=== PATIENT | female | born 1945 | race Asian ===

== ENCOUNTER 2017-04-30 11:16 | Outpatient (CLI) | payer OTHER | END 2017-04-30 19:15 | disposition home or self-care (01) | LOC: CT 11:16 | DX: R10.0 Acute abdomen (principal) | CPT/HCPCS: 36415; 82565; 84520; Q9963 ==

== ENCOUNTER 2018-11-05 13:58 | Inpatient (IN) | payer OTHER | END 2018-11-13 10:55 | disposition still patient (30) | LOC: PAVB 13:58 | PROVIDERS: ADMIT Internal Medicine ==

== ENCOUNTER 2018-11-13 11:21 | Inpatient (IN) | payer OTHER | END 2018-12-11 10:20 | disposition still patient (30) | LOC: PAVB 11:21 | PROVIDERS: ADMIT Internal Medicine ==

== ENCOUNTER 2018-12-09 06:04 | Outpatient (CLI) | payer OTHER | END 2018-12-09 19:38 | disposition home or self-care (01) | LOC: LAB 06:04 | DX: Z51.81 Encounter for therapeutic drug level monitoring (principal) | CPT/HCPCS: 36415; 82565 ==

== ENCOUNTER 2018-12-11 11:18 | Inpatient (IN) | payer OTHER | END 2019-01-11 10:41 | disposition still patient (30) | LOC: PAVB 11:18 | PROVIDERS: ADMIT Internal Medicine ==

== ENCOUNTER 2019-01-11 11:29 | Inpatient (IN) | payer OTHER | END 2019-02-10 11:18 | disposition still patient (30) | LOC: PAVB 11:29 | PROVIDERS: ADMIT Internal Medicine ==

== ENCOUNTER 2019-01-13 06:55 | Outpatient (CLI) | payer OTHER | END 2019-01-13 19:40 | disposition home or self-care (01) | LOC: LAB 06:55 | DX: E11.9 Type 2 diabetes mellitus without complications (principal) | CPT/HCPCS: 36415; 82728; 83036; 83540; 84443 ==

== ENCOUNTER 2019-01-13 13:30 | Outpatient (CLI) | payer OTHER | END 2019-01-13 20:07 | disposition home or self-care (01) | LOC: RAD 13:30 | DX: M17.0 Bilateral primary osteoarthritis of knee (principal) ==

== ENCOUNTER 2019-01-14 08:55 | Outpatient (CLI) | payer OTHER | END 2019-01-14 19:15 | disposition home or self-care (01) | LOC: MRI 08:55 | DX: M54.5 Low back pain (principal); Z78.0 Asymptomatic menopausal state; M25.562 Pain in left knee; M25.561 Pain in right knee ==

== ENCOUNTER 2019-02-10 12:36 | Inpatient (IN) | payer OTHER | END 2019-03-13 08:39 | disposition still patient (30) | LOC: PAVB 12:36 | PROVIDERS: ADMIT Internal Medicine | DX: Z51.89 Encounter for other specified aftercare (principal) ==

== ENCOUNTER 2019-03-13 09:36 | Inpatient (IN) | payer OTHER | END 2019-04-12 09:38 | disposition still patient (30) | LOC: PAVB 09:36 | PROVIDERS: ADMIT Internal Medicine ==

== ENCOUNTER 2019-04-12 11:32 | Inpatient (IN) | payer OTHER | END 2019-05-13 10:36 | disposition still patient (30) | LOC: PAVB 11:32 | PROVIDERS: ADMIT Internal Medicine ==

== ENCOUNTER 2019-04-14 05:28 | Outpatient (CLI) | payer OTHER ==
[2019-04-14 06:27] LABS: PLATELET COUNT 292 K/uL (152-353)
== END 2019-04-14 19:14 | disposition home or self-care (01) ==
LOC: LAB 05:28
PROVIDERS: Internal Medicine
DX: D51.8 Other vitamin B12 deficiency anemias (principal); E11.21 Type 2 diabetes mellitus with diabetic nephropathy; I10 Essential (primary) hypertension; E03.8 Other specified hypothyroidism
CPT/HCPCS: 80053; 82607; 82728; 83036; 83540; 84443; 85027

== ENCOUNTER 2019-04-28 11:05 | Outpatient (CLI) | payer OTHER | END 2019-04-28 23:47 | disposition home or self-care (01) | LOC: RAD 11:05 | DX: M54.5 Low back pain (principal) ==

== ENCOUNTER 2019-05-13 11:25 | Inpatient (IN) | payer OTHER | END 2019-06-13 16:27 | disposition still patient (30) | LOC: PAVB 11:25 | PROVIDERS: ADMIT Internal Medicine ==

== ENCOUNTER 2019-06-13 17:13 | Inpatient (IN) | payer OTHER | END 2019-07-13 09:22 | disposition still patient (30) | LOC: PAVB 17:13 | PROVIDERS: ADMIT Internal Medicine ==

== ENCOUNTER 2019-07-13 11:10 | Inpatient (IN) | payer OTHER | END 2019-08-13 11:11 | disposition still patient (30) | LOC: PAVB 11:10 | PROVIDERS: ADMIT Internal Medicine ==

== ENCOUNTER 2019-07-16 08:19 | Outpatient (CLI) | payer OTHER | END 2019-07-16 22:02 | disposition home or self-care (01) | LOC: LAB 08:19 | DX: E03.8 Other specified hypothyroidism (principal); E11.9 Type 2 diabetes mellitus without complications | CPT/HCPCS: 36415; 83036; 84443 ==

== ENCOUNTER 2019-07-22 14:30 | Outpatient (CLI) | payer OTHER | END 2019-07-22 20:21 | disposition home or self-care (01) | LOC: RESP 14:30 | DX: R60.0 Localized edema (principal) | CPT/HCPCS: 93306 ==

== ENCOUNTER 2019-08-13 11:42 | Inpatient (IN) | payer OTHER | END 2019-09-12 08:00 | disposition still patient (30) | LOC: PAVB 11:42 | PROVIDERS: ADMIT Internal Medicine ==

== ENCOUNTER 2019-09-12 11:11 | Inpatient (IN) | payer OTHER | END 2019-10-13 08:35 | disposition still patient (30) | LOC: PAVB 11:11 | PROVIDERS: ADMIT Internal Medicine ==

== ENCOUNTER 2019-10-13 08:58 | Inpatient (IN) | payer OTHER | END 2019-11-13 09:57 | disposition still patient (30) | LOC: PAVB 08:58 | PROVIDERS: ADMIT Internal Medicine ==

== ENCOUNTER 2019-10-14 06:02 | Outpatient (CLI) | payer OTHER ==
[2019-10-14 06:37] LABS: PLATELET COUNT 234 K/uL (152-353)
[2019-10-14 07:03] LABS: POTASSIUM 4.6 mmol/L (3.6-5.2)
== END 2019-10-14 19:30 | disposition home or self-care (01) ==
LOC: LAB 06:02
PROVIDERS: Internal Medicine
DX: E11.9 Type 2 diabetes mellitus without complications (principal); E03.8 Other specified hypothyroidism; I10 Essential (primary) hypertension; M17.0 Bilateral primary osteoarthritis of knee; M19.90 Unspecified osteoarthritis, unspecified site
CPT/HCPCS: 80053; 82728; 83036; 83540; 84443; 85027

== ENCOUNTER 2019-11-13 10:42 | Inpatient (IN) | payer OTHER | END 2019-12-12 13:16 | disposition still patient (30) | LOC: PAVB 10:42 | PROVIDERS: ADMIT Internal Medicine ==

== ENCOUNTER 2019-12-12 14:06 | Inpatient (IN) | payer OTHER | END 2020-01-12 08:59 | disposition still patient (30) | LOC: PAVB 14:06 → PAVA 01-05 14:27 | PROVIDERS: ADMIT Internal Medicine ==

== ENCOUNTER 2020-01-12 09:25 | Inpatient (IN) | payer OTHER | END 2020-02-11 08:04 | disposition still patient (30) | LOC: PAVA 09:25 | PROVIDERS: ADMIT Internal Medicine ==

== ENCOUNTER 2020-01-14 06:42 | Outpatient (CLI) | payer OTHER ==
[2020-01-14 08:42] LABS: POTASSIUM 5.3 mmol/L (3.6-5.2)
== END 2020-01-14 23:30 | disposition home or self-care (01) ==
LOC: LAB 06:42
PROVIDERS: Internal Medicine
DX: E11.21 Type 2 diabetes mellitus with diabetic nephropathy (principal); I10 Essential (primary) hypertension
CPT/HCPCS: 80048; 83036

== ENCOUNTER 2020-01-17 05:17 | Outpatient (CLI) | payer OTHER ==
[2020-01-17 07:47] LABS: POTASSIUM 4.6 mmol/L (3.6-5.2)
== END 2020-01-17 19:12 | disposition home or self-care (01) ==
LOC: LAB 05:17
PROVIDERS: Internal Medicine
DX: R79.89 Other specified abnormal findings of blood chemistry (principal)
CPT/HCPCS: 80048

== ENCOUNTER 2020-01-24 05:46 | Outpatient (CLI) | payer OTHER ==
[2020-01-24 11:14] LABS: POTASSIUM 4.5 mmol/L (3.6-5.2)
== END 2020-01-24 22:36 | disposition home or self-care (01) ==
LOC: LAB 05:46
PROVIDERS: Internal Medicine
DX: R79.89 Other specified abnormal findings of blood chemistry (principal)
CPT/HCPCS: 36415; 80048

== ENCOUNTER 2020-02-11 08:55 | Inpatient (IN) | payer OTHER | END 2020-03-13 08:12 | disposition still patient (30) | LOC: PAVA 08:55 | PROVIDERS: ADMIT Internal Medicine | CPT/HCPCS: 87635; U0002 ==

== ENCOUNTER 2020-03-13 08:46 | Inpatient (IN) | payer OTHER | END 2020-04-12 08:27 | disposition still patient (30) | LOC: PAVA 08:46 | PROVIDERS: ADMIT Internal Medicine | CPT/HCPCS: 87635; U0002 ==

== ENCOUNTER 2020-04-12 07:26 | Outpatient (CLI) | payer OTHER ==
[2020-04-12 08:18] LABS: PLATELET COUNT 248 K/uL (152-353)
[2020-04-12 08:43] LABS: POTASSIUM 3.6 mmol/L (3.6-5.2)
== END 2020-04-12 22:02 | disposition home or self-care (01) ==
LOC: LAB 07:26
PROVIDERS: Internal Medicine
DX: E11.9 Type 2 diabetes mellitus without complications (principal); E03.8 Other specified hypothyroidism; I10 Essential (primary) hypertension; D64.89 Other specified anemias; I48.91 Unspecified atrial fibrillation; E66.01 Morbid (severe) obesity due to excess calories
CPT/HCPCS: 80053; 82272; 82728; 83036; 83540; 83630; 84443; 85027; 87015; 87045; 87324; 87328; 87329; 87449; 87899

== ENCOUNTER 2020-04-12 09:53 | Inpatient (IN) | payer OTHER | END 2020-05-13 08:23 | disposition still patient (30) | LOC: PAVA 09:53 | PROVIDERS: ADMIT Internal Medicine | CPT/HCPCS: 87635; U0002 ==

== ENCOUNTER 2020-05-13 09:02 | Inpatient (IN) | payer OTHER | END 2020-06-13 10:51 | disposition still patient (30) | LOC: PAVA 09:02 | PROVIDERS: ADMIT Internal Medicine | CPT/HCPCS: 87635; U0002 ==

== ENCOUNTER 2020-06-13 11:32 | Inpatient (IN) | payer OTHER | END 2020-07-13 09:34 | disposition still patient (30) | LOC: PAVA 11:32 | PROVIDERS: ADMIT Internal Medicine | CPT/HCPCS: 82728; 83036 ==

== ENCOUNTER 2020-07-04 15:11 | Outpatient (CLI) | payer OTHER | END 2020-07-04 19:59 | disposition home or self-care (01) | LOC: LAB 15:11 | DX: N39.498 Other specified urinary incontinence (principal); M54.5 Low back pain | CPT/HCPCS: 81000 ==

== ENCOUNTER 2020-07-06 14:34 | Outpatient (CLI) | payer OTHER | END 2020-07-06 23:45 | disposition home or self-care (01) | LOC: US 14:34 | DX: N39.498 Other specified urinary incontinence (principal) ==

== ENCOUNTER 2020-07-13 10:54 | Inpatient (IN) | payer OTHER | END 2020-08-13 08:00 | disposition still patient (30) | LOC: PAVA 10:54 | PROVIDERS: ADMIT Internal Medicine ==

== ENCOUNTER 2020-07-13 10:55 | Outpatient (CLI) | payer OTHER | END 2020-07-13 20:05 | disposition home or self-care (01) | LOC: LAB 10:55 | DX: E11.9 Type 2 diabetes mellitus without complications (principal); D64.89 Other specified anemias | CPT/HCPCS: 82728; 83036; 83540 ==

== ENCOUNTER 2020-08-09 00:19 | Emergency (ER) | payer OTHER ==
[~2020-08-09] VITALS: Ht 167.6 cm; Wt 127.0 kg
[2020-08-09 03:10] LABS: PLATELET COUNT 263 K/uL (152-353)
[2020-08-09 04:05] VITALS: BP 125/61; TEMP 97.7
== END 2020-08-09 04:05 ==
LOC: ED 00:19
PROVIDERS: Family Medicine
DX: M51.36 Other intervertebral disc degeneration, lumbar region (principal); M54.5 Low back pain; G89.29 Other chronic pain; X50.1XXA Overexertion from prolonged static or awkward postures, initial encounter; Y92.128 Other place in nursing home as the place of occurrence of the external cause
CPT/HCPCS: 36415; 80053; 81000; 85027; 96372; 99283; J2175

== ENCOUNTER 2020-08-13 09:00 | Inpatient (IN) | payer OTHER | END 2020-09-12 08:39 | disposition still patient (30) | LOC: PAVA 09:00 | PROVIDERS: ADMIT Internal Medicine; ATTEND Internal Medicine ==

== ENCOUNTER 2020-09-12 09:35 | Inpatient (IN) | payer OTHER | END 2020-10-13 08:29 | disposition still patient (30) | LOC: PAVA 09:35 | PROVIDERS: ADMIT Internal Medicine; ATTEND Internal Medicine ==

== ENCOUNTER 2020-10-13 09:00 | Inpatient (IN) | payer OTHER | END 2020-11-13 13:11 | disposition still patient (30) | LOC: PAVA 09:00 | PROVIDERS: ADMIT Internal Medicine; ATTEND Internal Medicine ==

== ENCOUNTER 2020-10-16 08:31 | Outpatient (CLI) | payer OTHER ==
[2020-10-16 09:33] LABS: PLATELET COUNT 251 K/uL (152-353)
[2020-10-16 10:11] LABS: POTASSIUM 3.8 mmol/L (3.6-5.2)
== END 2020-10-16 21:06 | disposition home or self-care (01) ==
LOC: LAB 08:31
PROVIDERS: ATTEND Internal Medicine
DX: Z51.81 Encounter for therapeutic drug level monitoring (principal); I10 Essential (primary) hypertension; D64.89 Other specified anemias; E03.8 Other specified hypothyroidism; E11.21 Type 2 diabetes mellitus with diabetic nephropathy; I48.91 Unspecified atrial fibrillation; E66.01 Morbid (severe) obesity due to excess calories
CPT/HCPCS: 80053; 82728; 83036; 84443; 85027

== ENCOUNTER 2020-11-13 14:26 | Inpatient (IN) | payer OTHER | END 2020-12-11 08:41 | disposition still patient (30) | LOC: PAVA 14:26 | PROVIDERS: ADMIT Internal Medicine; ATTEND Internal Medicine ==

== ENCOUNTER 2020-12-11 09:18 | Inpatient (IN) | payer OTHER | END 2021-01-11 08:34 | disposition still patient (30) | LOC: PAVA 09:18 | PROVIDERS: ADMIT Internal Medicine; ATTEND Internal Medicine ==

== ENCOUNTER 2021-01-11 09:44 | Inpatient (IN) | payer OTHER | END 2021-02-10 11:57 | disposition still patient (30) | LOC: PAVA 09:44 | PROVIDERS: ADMIT Internal Medicine; ATTEND Internal Medicine ==

== ENCOUNTER 2021-01-11 12:51 | Outpatient (CLI) | payer OTHER | END 2021-01-11 21:34 | disposition home or self-care (01) | LOC: LAB 12:51 | PROVIDERS: ATTEND Internal Medicine | DX: E11.9 Type 2 diabetes mellitus without complications (principal) | CPT/HCPCS: 83036 ==

== ENCOUNTER 2021-01-17 10:13 | Outpatient (CLI) | payer OTHER | END 2021-01-17 20:10 | disposition home or self-care (01) | LOC: RAD 10:13 | PROVIDERS: ATTEND Internal Medicine | DX: Z13.820 Encounter for screening for osteoporosis (principal) ==

== ENCOUNTER 2021-02-10 12:13 | Inpatient (IN) | payer OTHER | END 2021-03-13 13:25 | disposition still patient (30) | LOC: PAVA 12:13 | PROVIDERS: ADMIT Internal Medicine; ATTEND Internal Medicine ==

== ENCOUNTER 2021-03-13 14:29 | Inpatient (IN) | payer OTHER | END 2021-04-12 08:00 | disposition still patient (30) | LOC: PAVA 14:29 | PROVIDERS: ADMIT Internal Medicine; ATTEND Internal Medicine ==

== ENCOUNTER 2021-04-12 09:00 | Inpatient (IN) | payer OTHER | END 2021-05-13 08:00 | disposition still patient (30) | LOC: PAVA 09:00 | PROVIDERS: ADMIT Internal Medicine; ATTEND Internal Medicine ==

== ENCOUNTER 2021-04-16 07:32 | Outpatient (CLI) | payer OTHER ==
[2021-04-16 10:43] LABS: PLATELET COUNT 255 K/uL (152-353)
[2021-04-16 11:26] LABS: POTASSIUM 4.5 mmol/L (3.6-5.2)
== END 2021-04-16 23:00 | disposition home or self-care (01) ==
LOC: LAB 07:32
PROVIDERS: ATTEND Internal Medicine
DX: I48.91 Unspecified atrial fibrillation (principal); E66.01 Morbid (severe) obesity due to excess calories; E11.21 Type 2 diabetes mellitus with diabetic nephropathy; E03.8 Other specified hypothyroidism
CPT/HCPCS: 80053; 82728; 83036; 83540; 84443; 85027

== ENCOUNTER 2021-05-13 09:00 | Inpatient (IN) | payer OTHER | END 2021-06-13 09:09 | disposition still patient (30) | LOC: PAVA 09:00 | PROVIDERS: ADMIT Internal Medicine; ATTEND Internal Medicine ==

== ENCOUNTER 2021-06-13 09:50 | Inpatient (IN) | payer OTHER | END 2021-07-13 08:11 | disposition still patient (30) | LOC: PAVA 09:50 | PROVIDERS: ADMIT Internal Medicine; ATTEND Internal Medicine ==

== ENCOUNTER 2021-07-13 10:37 | Outpatient (CLI) | payer OTHER | END 2021-07-13 19:05 | disposition home or self-care (01) | LOC: LAB 10:37 | PROVIDERS: ATTEND Internal Medicine | DX: E11.9 Type 2 diabetes mellitus without complications (principal) | CPT/HCPCS: 83036 ==

== ENCOUNTER 2021-09-12 09:12 | Inpatient (IN) | payer OTHER | END 2021-10-13 07:57 | disposition still patient (30) | LOC: PAVA 09:12 | PROVIDERS: ADMIT Internal Medicine; ATTEND Internal Medicine ==

== ENCOUNTER 2021-10-13 08:18 | Inpatient (IN) | payer OTHER | END 2021-11-13 08:52 | disposition still patient (30) | LOC: PAVA 08:18 | PROVIDERS: ADMIT Internal Medicine; ATTEND Internal Medicine ==

== ENCOUNTER 2021-10-15 07:48 | Outpatient (CLI) | payer OTHER ==
[2021-10-15 08:56] LABS: PLATELET COUNT 216 K/uL (152-353)
[2021-10-15 09:37] LABS: POTASSIUM 4.3 mmol/L (3.6-5.2)
== END 2021-10-15 18:47 | disposition home or self-care (01) ==
LOC: LAB 07:48
PROVIDERS: ATTEND Internal Medicine
DX: E11.9 Type 2 diabetes mellitus without complications (principal); D64.89 Other specified anemias; I10 Essential (primary) hypertension
CPT/HCPCS: 80053; 82728; 83036; 83540; 84443; 85027

== ENCOUNTER 2021-11-13 10:53 | Inpatient (IN) | payer OTHER | END 2021-12-11 08:55 | disposition still patient (30) | LOC: PAVA 10:53 | PROVIDERS: ADMIT Internal Medicine; ATTEND Internal Medicine ==

== ENCOUNTER 2021-11-27 13:58 | Outpatient (CLI) | payer OTHER | END 2021-11-27 19:02 | disposition home or self-care (01) | LOC: RAD 13:58 | PROVIDERS: ATTEND Internal Medicine | DX: M25.562 Pain in left knee (principal) ==

== ENCOUNTER 2021-12-11 11:19 | Inpatient (IN) | payer OTHER | END 2022-01-11 08:10 | disposition still patient (30) | LOC: PAVA 11:19 | PROVIDERS: ADMIT Internal Medicine; ATTEND Internal Medicine ==

== ENCOUNTER 2022-01-11 07:23 | Outpatient (CLI) | payer OTHER | END 2022-01-11 20:42 | disposition home or self-care (01) | LOC: LAB 07:23 | PROVIDERS: ATTEND Internal Medicine | DX: E11.9 Type 2 diabetes mellitus without complications (principal) | CPT/HCPCS: 83036 ==

== ENCOUNTER 2022-01-11 08:37 | Inpatient (IN) | payer OTHER | END 2022-02-10 10:56 | disposition still patient (30) | LOC: PAVA 08:37 | PROVIDERS: ADMIT Internal Medicine; ATTEND Internal Medicine ==

== ENCOUNTER 2022-02-10 03:53 | Inpatient (IN) | payer OTHER | END 2022-03-13 09:27 | disposition still patient (30) | LOC: PAVA 03:53 | PROVIDERS: ADMIT Internal Medicine; ATTEND Internal Medicine ==

== ENCOUNTER 2022-03-13 11:43 | Inpatient (IN) | payer OTHER | END 2022-04-12 09:11 | disposition still patient (30) | LOC: PAVA 11:43 → PAVB 03-15 14:48 | PROVIDERS: ADMIT Internal Medicine; ATTEND Internal Medicine ==

== ENCOUNTER 2022-04-12 12:08 | Inpatient (IN) | payer OTHER | END 2022-05-13 09:21 | disposition still patient (30) | LOC: PAVB 12:08 | PROVIDERS: ADMIT Internal Medicine; ATTEND Internal Medicine ==

== ENCOUNTER 2022-04-15 08:01 | Outpatient (CLI) | payer OTHER ==
[2022-04-15 08:23] LABS: PLATELET COUNT 239 K/uL (152-353)
== END 2022-04-15 18:52 | disposition home or self-care (01) ==
LOC: LAB 08:01
PROVIDERS: ATTEND Internal Medicine
DX: I10 Essential (primary) hypertension (principal); E11.9 Type 2 diabetes mellitus without complications
CPT/HCPCS: 80053; 82728; 83036; 83540; 84443; 85027

== ENCOUNTER 2022-04-30 14:04 | Outpatient (CLI) | payer OTHER | END 2022-04-30 18:57 | disposition home or self-care (01) | LOC: RAD 14:04 | PROVIDERS: ATTEND Internal Medicine | DX: R09.02 Hypoxemia (principal) ==

== ENCOUNTER 2022-05-13 13:52 | Inpatient (IN) | payer OTHER | END 2022-06-13 09:08 | disposition still patient (30) | LOC: PAVB 13:52 | PROVIDERS: ADMIT Internal Medicine; ATTEND Internal Medicine ==

== ENCOUNTER 2022-06-13 13:42 | Inpatient (IN) | payer OTHER | END 2022-07-13 10:25 | disposition still patient (30) | LOC: PAVB 13:42 | PROVIDERS: ADMIT Family Medicine; ATTEND Family Medicine ==

== ENCOUNTER 2022-07-11 14:57 | Outpatient (CLI) | payer OTHER | END 2022-07-11 19:26 | disposition home or self-care (01) | LOC: RAD 14:57 | PROVIDERS: ATTEND Family Medicine | DX: M54.89 Other dorsalgia (principal) ==

== ENCOUNTER 2022-07-13 12:22 | Inpatient (IN) | payer OTHER | END 2022-08-13 14:34 | disposition still patient (30) | LOC: PAVB 12:22 | PROVIDERS: ADMIT Family Medicine; ATTEND Family Medicine ==

== ENCOUNTER 2022-07-15 09:56 | Outpatient (CLI) | payer OTHER | END 2022-07-15 20:41 | disposition home or self-care (01) | LOC: LAB 09:56 | PROVIDERS: ATTEND Family Medicine | DX: E11.9 Type 2 diabetes mellitus without complications (principal) | CPT/HCPCS: 83036 ==

== ENCOUNTER 2022-08-13 15:21 | Inpatient (IN) | payer OTHER | END 2022-09-12 15:03 | disposition still patient (30) | LOC: PAVB 15:21 | PROVIDERS: ADMIT Family Medicine; ATTEND Family Medicine ==

== ENCOUNTER 2022-09-12 16:54 | Inpatient (IN) | payer OTHER | END 2022-10-13 10:35 | disposition still patient (30) | LOC: PAVB 16:54 | PROVIDERS: ADMIT Family Medicine; ATTEND Family Medicine ==

== ENCOUNTER 2022-10-13 12:07 | Inpatient (IN) | payer OTHER | END 2022-11-13 08:42 | disposition still patient (30) | LOC: PAVB 12:07 | PROVIDERS: ADMIT Family Medicine; ATTEND Family Medicine ==

== ENCOUNTER 2022-10-15 07:34 | Outpatient (CLI) | payer OTHER ==
[2022-10-15 08:25] LABS: PLATELET COUNT 296 K/uL (152-353)
[2022-10-15 08:29] LABS: POTASSIUM 3.9 mmol/L (3.6-5.2)
== END 2022-10-15 18:55 | disposition home or self-care (01) ==
LOC: LAB 07:34
PROVIDERS: ATTEND Family Medicine
DX: I48.91 Unspecified atrial fibrillation (principal); E66.01 Morbid (severe) obesity due to excess calories; E11.21 Type 2 diabetes mellitus with diabetic nephropathy; I10 Essential (primary) hypertension; E03.8 Other specified hypothyroidism
CPT/HCPCS: 80053; 82728; 83036; 83540; 84443; 85027

== ENCOUNTER 2022-11-13 10:41 | Inpatient (IN) | payer OTHER | END 2022-12-11 11:56 | disposition still patient (30) | LOC: PAVB 10:41 | PROVIDERS: ADMIT Family Medicine; ATTEND Family Medicine ==

== ENCOUNTER 2022-12-11 12:36 | Inpatient (IN) | payer OTHER ==
[2023-01-10] MEDS ORDERED: OXYB5TAB64 PO (21:15)
[2023-01-10] MEDS ORDERED: LEVO0.0723 PO (21:16)
[2023-01-10] MEDS ORDERED: POLYETHYLE17 GM/SCO1 PO (21:19)
[2023-01-10] MEDS ORDERED: METFTAB PO (21:21)
[2023-01-10] MEDS ORDERED: METO-837 PO (21:22)
[2023-01-10] MEDS ORDERED: GABA300C2 PO (21:24)
[2023-01-10] MEDS ORDERED: DICLOFENAC SODIUM1 % TOP (21:26)
== END 2023-01-11 11:24 | disposition still patient (30) ==
LOC: PAVB 12:36
PROVIDERS: ADMIT Family Medicine; ATTEND Family Medicine

== ENCOUNTER 2023-01-10 14:10 | Observation (INO) | payer OTHER ==
[~2023-01-10] VITALS: Ht 167.6 cm; Wt 139.7 kg
[2023-01-10 14:10] VITALS: BP 144/72; TEMP 97.9
[2023-01-10 14:49] LABS: PLATELET COUNT 254 K/uL (152-353)
[2023-01-10 15:00] LABS: POTASSIUM 3.9 mmol/L (3.6-5.2)
[2023-01-10 18:12] VITALS: BP 130/58; TEMP 98.2
[2023-01-10 18:24] VITALS: BP 130/58; TEMP 98.2; Ht 167.6 cm; Wt 139.7 kg
[2023-01-10 19:56] VITALS: BP 131/74; TEMP 98.8
[2023-01-10] MEDS ORDERED: OXYB5TAB64 PO (21:15)
[2023-01-10] MEDS ORDERED: LEVO0.0723 PO (21:16)
[2023-01-10] MEDS ORDERED: POLYETHYLE17 GM/SCO1 PO (21:19)
[2023-01-10] MEDS ORDERED: METFTAB PO (21:21)
[2023-01-10] MEDS ORDERED: METO-837 PO (21:22)
[2023-01-10] MEDS ORDERED: GABA300C2 PO (21:24)
[2023-01-10] MEDS ORDERED: DICLOFENAC SODIUM1 % TOP (21:26)
[2023-01-10 23:44] VITALS: BP 126/38; TEMP 99
[2023-01-11 03:44] VITALS: BP 135/61; TEMP 98.9
[2023-01-11 05:02] LABS: PLATELET COUNT 240 K/uL (152-353)
[2023-01-11 05:14] LABS: POTASSIUM 3.7 mmol/L (3.6-5.2)
[2023-01-11 08:00] VITALS: BP 124/78; TEMP 98.4
[2023-01-11 12:00] VITALS: BP 134/71; TEMP 98.1
[2023-01-11 16:00] VITALS: BP 144/51; TEMP 98.2
[2023-01-11 19:58] VITALS: BP 176/79; TEMP 99.7
[2023-01-12] VITALS: BP 147/88; TEMP 98.6
[2023-01-12 03:50] VITALS: BP 163/83; TEMP 97.3
== END 2023-01-12 10:40 ==
LOC: ED 14:10 → MED/SURG 16:07
PROVIDERS: Internal Medicine; ADMIT Internal Medicine; ATTEND Internal Medicine
DX: N39.0 Urinary tract infection, site not specified (principal); I11.0 Hypertensive heart disease with heart failure; I50.9 Heart failure, unspecified; J96.10 Chronic respiratory failure, unspecified whether with hypoxia or hypercapnia; M15.8 Other polyosteoarthritis; E03.8 Other specified hypothyroidism; E11.42 Type 2 diabetes mellitus with diabetic polyneuropathy; B96.20 Unspecified Escherichia coli [E. coli] as the cause of diseases classified elsewhere
CPT/HCPCS: 36415; 80053; 81000; 82948; 83735; 85027; 87040; 87077; 87086; 87088; 87186; 87502; 87635; 94760; 96365; 99221; 99284; G0378; J0696; U0003

== ENCOUNTER 2023-01-11 11:43 | Inpatient (IN) | payer OTHER ==
[~2023-01-11 11:43] MED LIST: DICLOFENAC SODIUM1 % TOP; GABA300C2 PO; LEVO0.0723 PO; METFTAB PO; METO-837 PO; OXYB5TAB64 PO; POLYETHYLE17 GM/SCO1 PO
== END 2023-02-10 10:44 | disposition still patient (30) ==
LOC: PAVB 11:43
PROVIDERS: ADMIT Family Medicine; ATTEND Family Medicine

== ENCOUNTER 2023-01-14 10:08 | Outpatient (CLI) | payer OTHER ==
[2023-01-14 15:06] LABS: PLATELET COUNT 263 K/uL (152-353)
== END 2023-01-14 22:11 | disposition home or self-care (01) ==
LOC: LAB 10:08
PROVIDERS: ATTEND Family Medicine
DX: E11.21 Type 2 diabetes mellitus with diabetic nephropathy (principal); R06.02 Shortness of breath; I11.9 Hypertensive heart disease without heart failure
CPT/HCPCS: 80053; 83036; 83880; 85027

== ENCOUNTER 2023-01-22 10:00 | Outpatient (CLI) | payer OTHER | END 2023-01-22 19:03 | disposition home or self-care (01) | LOC: RAD 10:00 | PROVIDERS: ATTEND Family Medicine | DX: Z13.820 Encounter for screening for osteoporosis (principal); N95.8 Other specified menopausal and perimenopausal disorders ==

== ENCOUNTER 2023-02-10 12:10 | Inpatient (IN) | payer OTHER ==
[~2023-02-10 12:10] MED LIST changes: +EUTHYROX75 MCG PO; -LEVO0.0723 PO
[2023-03-10] MEDS ORDERED: DONEPEZIL HYDRO10 MG PO (17:28)
[2023-03-10] MEDS ORDERED: FURO20TA67 PO (17:29)
[2023-03-10] MEDS ORDERED: VALS160T2 PO (17:29)
[2023-03-10] MEDS ORDERED: MOBIC15 MG PO (17:30)
[2023-03-10] MEDS ORDERED: CETI10TA PO (17:30)
[2023-03-10] MEDS ORDERED: ARTIFICIAL TEARS1 % OPTH (17:31)
[2023-03-10] MEDS ORDERED: [UNRECOGNIZED DRUG - CODE] PO (17:31)
[2023-03-10] MEDS ORDERED: BENEPROTEIN6 GM PO (17:32)
[2023-03-10] MEDS ORDERED: IRON325 MG PO (17:32)
[2023-03-10] MEDS ORDERED: AMLODIPINE BESYLATE PO (17:33)
[2023-03-10] MEDS ORDERED: PRADAXA150 MG PO (17:33)
[2023-03-10] MEDS ORDERED: TRAMADOL HYDROC50 MG PO (17:34)
[2023-03-10] MEDS ORDERED: ACETAMINOPHEN650 M2 PO (17:34)
[2023-03-10] MEDS ORDERED: OXYGEN (17:35)
== END 2023-03-13 10:35 | disposition still patient (30) ==
LOC: PAVB 12:10
PROVIDERS: ADMIT Family Medicine; ATTEND Family Medicine

== ENCOUNTER 2023-03-10 10:26 | Inpatient (IN) | payer OTHER ==
[~2023-03-10] VITALS: Ht 167.6 cm; Wt 146.3 kg
[2023-03-10 10:26] VITALS: BP 158/80; TEMP 97.2
[2023-03-10 11:22] LABS: PLATELET COUNT 265 K/uL (152-353)
[2023-03-10 11:33] LABS: POTASSIUM 4.3 mmol/L (3.6-5.2)
[2023-03-10 12:00] VITALS: BP 159/87
[2023-03-10 14:00] VITALS: BP 151/69
[2023-03-10 16:00] VITALS: BP 162/89
[2023-03-10 17:12] VITALS: BP 152/79; TEMP 97.6; Ht 167.6 cm; Wt 146.3 kg
[2023-03-10] MEDS ORDERED: DONEPEZIL HYDRO10 MG PO (17:28)
[2023-03-10] MEDS ORDERED: FURO20TA67 PO (17:29)
[2023-03-10] MEDS ORDERED: VALS160T2 PO (17:29)
[2023-03-10] MEDS ORDERED: CETI10TA PO (17:30)
[2023-03-10] MEDS ORDERED: MOBIC15 MG PO (17:30)
[2023-03-10] MEDS ORDERED: [UNRECOGNIZED DRUG - CODE] PO (17:31)
[2023-03-10] MEDS ORDERED: ARTIFICIAL TEARS1 % OPTH (17:31)
[2023-03-10] MEDS ORDERED: IRON325 MG PO (17:32)
[2023-03-10] MEDS ORDERED: BENEPROTEIN6 GM PO (17:32)
[2023-03-10] MEDS ORDERED: AMLODIPINE BESYLATE PO (17:33)
[2023-03-10] MEDS ORDERED: PRADAXA150 MG PO (17:33)
[2023-03-10] MEDS ORDERED: TRAMADOL HYDROC50 MG PO (17:34)
[2023-03-10] MEDS ORDERED: ACETAMINOPHEN650 M2 PO (17:34)
[2023-03-10] MEDS ORDERED: OXYGEN (17:35)
[2023-03-11 04:00] VITALS: BP 131/69; TEMP 98
[2023-03-11 05:09] LABS: PLATELET COUNT 270 K/uL (152-353)
[2023-03-11 08:00] VITALS: BP 137/72; TEMP 98.3
[2023-03-11 12:00] VITALS: BP 136/61; TEMP 97.9
[2023-03-11 16:39] VITALS: BP 155/67; TEMP 98.4
[2023-03-11 20:00] VITALS: BP 133/54; TEMP 98.2
[2023-03-12 04:00] VITALS: BP 133/54; TEMP 98.4
[2023-03-12 04:48] LABS: PLATELET COUNT 267 K/uL (152-353)
[2023-03-12 05:27] LABS: POTASSIUM 4.5 mmol/L (3.6-5.2)
[2023-03-12 08:08] VITALS: BP 158/72; TEMP 98.5
[2023-03-12 12:00] VITALS: BP 140/68; TEMP 97.9
[2023-03-12 16:00] VITALS: BP 145/72; TEMP 97.6
[2023-03-12 19:30] VITALS: BP 132/68; TEMP 98.3
[2023-03-12 23:30] VITALS: BP 135/74; TEMP 97.4
[2023-03-13 03:40] VITALS: BP 172/67; TEMP 98.3
[2023-03-13 07:24] VITALS: BP 118/75; TEMP 98.3
[2023-03-13 12:16] VITALS: BP 144/81; TEMP 97.6
== END 2023-03-13 13:34 | DRG 190 ==
LOC: ED 10:26 → MED/SURG 15:47
PROVIDERS: Emergency Medicine; ADMIT Family Medicine; ATTEND Family Medicine
DX: J44.1 Chronic obstructive pulmonary disease with (acute) exacerbation (principal); J18.8 Other pneumonia, unspecified organism; R06.02 Shortness of breath; E11.65 Type 2 diabetes mellitus with hyperglycemia; I50.9 Heart failure, unspecified; Z79.01 Long term (current) use of anticoagulants; I11.0 Hypertensive heart disease with heart failure; I48.91 Unspecified atrial fibrillation
CPT/HCPCS: 36415; 36600; 80053; 82550; 82805; 82948; 83735; 83880; 84100; 84484; 85027; 85379; 87040; 93005; 94664; 94667; 94668; 94760; 96365; 96367; 96372; 96375; 96376; 99284; J0456; J0696; J1650; J2930

== ENCOUNTER 2023-03-13 10:57 | Inpatient (IN) | payer OTHER ==
[~2023-03-13 10:57] MED LIST changes: +ACETAMINOPHEN650 M2 PO; +AMLODIPINE BESYLATE PO; +ARTIFICIAL TEARS1 % OPTH; +BENEPROTEIN6 GM PO; +CETI10TA PO; +DONEPEZIL HYDRO10 MG PO; +FURO20TA67 PO; +IRON325 MG PO; +MOBIC15 MG PO; +OXYGEN; +PRADAXA150 MG PO; +TRAMADOL HYDROC50 MG PO; +VALS160T2 PO; +[UNRECOGNIZED DRUG - CODE] PO
== END 2023-04-12 17:32 | disposition still patient (30) ==
LOC: PAVB 10:57
PROVIDERS: ADMIT Family Medicine; ATTEND Family Medicine

== ENCOUNTER 2023-04-14 07:50 | Outpatient (CLI) | payer OTHER ==
[2023-04-14 08:59] LABS: PLATELET COUNT 254 K/uL (152-353)
== END 2023-04-14 19:24 | disposition home or self-care (01) ==
LOC: LAB 07:50
PROVIDERS: ATTEND Family Medicine
DX: E03.8 Other specified hypothyroidism (principal); E11.21 Type 2 diabetes mellitus with diabetic nephropathy
CPT/HCPCS: 36415; 80053; 82728; 83036; 83540; 84443; 85027

== ENCOUNTER 2023-05-19 10:43 | Outpatient (CLI) | payer OTHER | END 2023-05-19 19:11 | disposition home or self-care (01) | LOC: LAB 10:43 | PROVIDERS: ATTEND Family Medicine | DX: E03.8 Other specified hypothyroidism (principal) | CPT/HCPCS: 84443 ==